=== PATIENT | male | born 1955 | race Two or more races ===

== ENCOUNTER 2021-12-10 10:30 | Emergency (ER) | payer OTHER ==
[~2021-12-10] VITALS: Ht 182.9 cm; Wt 72.6 kg
[2021-12-10 16:30] VITALS: BP 90/52
[2021-12-10] MEDS ORDERED: PER60TP TOP (16:39)
== END 2021-12-10 17:25 | disposition home or self-care (01) ==
LOC: ER 10:30
DX: B86 Scabies (principal); Z79.899 Other long term (current) drug therapy; Z88.5 Allergy status to narcotic agent